=== PATIENT | female | born 1960 | race Two or more races ===

== ENCOUNTER → 2022-12-08 | Emergency (ER) | payer OTHER ==
[~2022-12-08] VITALS: Ht 165.1 cm; Wt 81.6 kg
== END | disposition home or self-care (01) ==
LOC: ER 13:52
DX: E86.0 Dehydration (principal); R19.7 Diarrhea, unspecified

== ENCOUNTER 2023-01-11 08:18 | Outpatient (CLI) | payer OTHER | END 2023-01-11 08:24 | disposition home or self-care (01) | LOC: MAMO-SONO 08:18 | PROVIDERS: ATTEND Obstetrics & Gynecology Gynecology | DX: N95.0 Postmenopausal bleeding (principal); N60.11 Diffuse cystic mastopathy of right breast; N60.12 Diffuse cystic mastopathy of left breast; Z12.31 Encounter for screening mammogram for malignant neoplasm of breast ==

== ENCOUNTER 2023-03-10 10:15 | Outpatient (CLI) | payer OTHER | END 2023-03-10 10:17 | disposition home or self-care (01) | LOC: LAB 10:15 | PROVIDERS: ATTEND Pediatrics | DX: R19.7 Diarrhea, unspecified (principal); R69 Illness, unspecified; R53.1 Weakness; R10.817 Generalized abdominal tenderness; R10.84 Generalized abdominal pain; Z12.11 Encounter for screening for malignant neoplasm of colon; R42 Dizziness and giddiness; R73.01 Impaired fasting glucose; D25.1 Intramural leiomyoma of uterus; R97.1 Elevated cancer antigen 125 [CA 125]; D27.1 Benign neoplasm of left ovary; R05.9 Cough, unspecified; R51.0 Headache with orthostatic component, not elsewhere classified; N95.1 Menopausal and female climacteric states ==

== ENCOUNTER 2023-03-10 11:39 | Outpatient (CLI) | payer OTHER | END 2023-03-10 12:02 | disposition home or self-care (01) | LOC: RAD 11:39 | PROVIDERS: ATTEND Pediatrics | DX: D25.1 Intramural leiomyoma of uterus (principal); D27.1 Benign neoplasm of left ovary; N95.0 Postmenopausal bleeding; R10.817 Generalized abdominal tenderness; R10.84 Generalized abdominal pain ==

== ENCOUNTER 2023-03-18 22:14 | Emergency (ER) | payer OTHER ==
[~2023-03-18] VITALS: Ht 162.6 cm; Wt 59.4 kg
[2023-03-19] MEDS ORDERED: CEPHALEXIN250 MG/5 M PO (06:20)
[2023-03-19] MEDS ORDERED: ONDANSETRON ODT4 MG PO (06:20)
[2023-03-19] MEDS ORDERED: PEPCID40 MG PO (06:20)
== END 2023-03-19 06:19 ==
LOC: ER 22:14
DX: R11.0 Nausea (principal)

== ENCOUNTER 2023-09-30 10:51 | Outpatient (CLI) | payer OTHER ==
[~2023-09-30 10:51] MED LIST: CEPHALEXIN250 MG/5 M PO; ONDANSETRON ODT4 MG PO; PEPCID40 MG PO
== END 2023-09-30 11:02 | disposition home or self-care (01) ==
LOC: TOM 10:51
PROVIDERS: ATTEND General Practice
DX: C78.01 Secondary malignant neoplasm of right lung (principal); C54.1 Malignant neoplasm of endometrium

== ENCOUNTER 2023-10-26 11:36 | Inpatient (IN) | payer OTHER ==
[~2023-10-26] VITALS: Ht 165.1 cm; Wt 59.0 kg
[2023-10-26 12:26] LABS: HEMOGLOBIN 12.2 g/dL (12.0-15.00); MEAN CELL VOLUME 89.5 fL (80.00-100.00); MEAN CORPUSCULAR HEMOGLOBIN 29.6 pg (27.00-32.0); PLATELET COUNT 209 K/uL (150-450); RED BLOOD COUNT 4.13 M/uL (4.00-6.00); RED CELL DISTRIBUTION WIDTH 12.8 % (11.5-14.5)
[2023-10-26 12:52] LABS: ALBUMIN 3.2 gm/dL (3.4-5.0); BILIRUBIN TOTAL 0.6 mg/dL (0.3-1.2); CALCIUM 9.2 mg/dL (8.5-10.1); CREATININE SERUM 0.48 mg/dL (0.55-1.02); GFR 131.48; GLOBULINA 3.8 G/DL (2.4-3.5); POTASSIUM 3.98 mEq/L (3.5-5.1)
[2023-10-26 12:56] LABS: URINE APPEARANCE Clear; URINE BILIRRUBIN Small (NEGATIVE); URINE BLOOD Small; URINE COLOR Dark Yellow; URINE GLUCOSE Negative (NEGATIVE); URINE LEUKOCYTE Trace; URINE NITRATE Negative; URINE PROTEIN Trace (NEGATIVE)
[2023-10-26 12:57] LABS: INR 1.03; PARTIAL THROMBOPLASTIN TIME 32.2 SECONDS (22.0-34.0); PROTHROMBIN TIME 10.8 SECONDS (9.0-11.5)
[2023-10-26 12:59] LABS: URINE BACTERIA 258.2 uL (0.0-1933); URINE EPITHELIAL CELLS 28.2 uL (0.0-38.8); URINE RBC 32.3 uL (0.0-20.8); URINE WBC 14.9 uL (0.0-23.2)
[2023-10-26] MEDS ORDERED: ONDANSETRON HCL 2 MG/ML VIAL IV PRN (13:45)
[2023-10-26] MEDS ORDERED: HYOSCYAMINE SULFATE 0.125 MG TAB.SUBL SL PRN (13:45)
[2023-10-26] MEDS ORDERED: ACETAMINOPHEN 500 MG GEL..CAP PO PRN (13:45)
[2023-10-26] MEDS ORDERED: RINGERS SOLUTION,LACTATED 1,000 ML IV SCH (13:45)
[2023-10-26] MEDS ORDERED: MORPHINE SULFATE 4 MG/ML CARTRIDGE IV PRN (13:45)
[2023-10-26] MEDS ORDERED: FAMOTIDINE/PF 20 MG/2 ML VIAL IV SCH (21:00)
[2023-10-27] MEDS ORDERED: METOPROLOL SUCCINATE 25 MG TAB.SR.24H PO SCH (09:00)
[2023-10-27 21:45] LABS: TP PLEURAL FLUID 4.4 g/dl
[2023-10-27 22:28] LABS: PLEURAL FLUID APPEARANCE TURBID; PLEURAL FLUID COLOR RED-BLOODY
[2023-10-27 22:29] LABS: MONONUCLEAR 88 %; POLYMORPHONUCLEAR 12 %
== END 2023-10-28 19:37 | disposition home or self-care (01) | DRG 755 ==
LOC: MEDJ 11:36
PROVIDERS: Radiology Vascular & Interventional Radiology; ADMIT Internal Medicine Hematology & Oncology; ATTEND Internal Medicine Hematology & Oncology
PROC: BW24ZZZ Computerized Tomography (CT Scan) of Chest and Abdomen (ICD-10-PCS; principal; 2023-10-26)
PROC: BW21ZZZ Computerized Tomography (CT Scan) of Abdomen and Pelvis (ICD-10-PCS; 2023-10-27)
DX: C54.1 Malignant neoplasm of endometrium (principal); J91.0 Malignant pleural effusion

== ENCOUNTER 2023-12-24 16:31 | Emergency (ER) | payer OTHER ==
[~2023-12-24] VITALS: Ht 160 cm; Wt 59.0 kg
[~2023-12-24 16:31] MED LIST changes: +CEFDINIR300 MG PO
[2023-12-24] MEDS ORDERED: TOPROL XL25 M1 PO (18:09)
== END 2023-12-25 00:30 | disposition home or self-care (01) ==
LOC: ER 16:32
DX: C78.01 Secondary malignant neoplasm of right lung (principal); J91.0 Malignant pleural effusion; J94.2 Hemothorax

== ENCOUNTER 2024-02-23 14:58 | Outpatient (CLI) | payer OTHER ==
[~2024-02-23 14:58] MED LIST changes: +TOPROL XL25 M1 PO
== END 2024-02-23 15:03 | disposition home or self-care (01) ==
LOC: TOM 14:58
PROVIDERS: ATTEND Internal Medicine Pulmonary Disease
DX: J91.0 Malignant pleural effusion (principal)

== ENCOUNTER 2024-02-28 17:32 | Inpatient (IN) | payer OTHER ==
[~2024-02-28] VITALS: Ht 152.4 cm; Wt 59.0 kg
[2024-02-28] MEDS ORDERED: IPRATROPIUM BROMIDE 0.5 MG/2.5 ML AMPUL.NEB IH SCH (18:49)
[2024-02-28] MEDS ORDERED: FAMOTIDINE/PF 20 MG in 0.9 % SODIUM CHLORIDE 8 ML IV PUSH SCH (18:51)
[2024-02-28] MEDS ORDERED: ONDANSETRON HCL 4 MG in 0.9 % SODIUM CHLORIDE 50 ML IV PRN (19:00)
[2024-02-28] MEDS ORDERED: ACETAMINOPHEN 500 MG GEL..CAP PO PRN (19:00)
[2024-02-28 19:57] LABS: HEMATOCRIT 30.5 % (36.0-45.00); HEMOGLOBIN 9.8 g/dL (12.0-15.00); MEAN CELL VOLUME 84.5 fL (80.00-100.00); MEAN CORPUSCULAR HEMOGLOBIN 27.2 pg (27.00-32.0); MEAN CORPUSCULAR HGB CONC 32.2 g/dl (32.0-36.0); PLATELET COUNT 410 K/uL (150-450); RED BLOOD COUNT 3.61 M/uL (4.00-6.00); RED CELL DISTRIBUTION WIDTH 15.6 % (11.5-14.5)
[2024-02-28 20:06] LABS: INR 1.12; PARTIAL THROMBOPLASTIN TIME 33.6 SECONDS (22.0-34.0); PROTHROMBIN TIME 11.7 SECONDS (9.0-11.5)
[2024-02-28 20:15] LABS: ALBUMIN 1.2 gm/dL (3.4-5.0); ALKALINE PHOSPHATASE 129 U/L (50-136); ANION GAP 8 (10.0-20.0); AST/SGOT 14 U/L (15-37); BILIRUBIN TOTAL 0.17 mg/dL (0.3-1.2); BLOOD UREA NITROGEN 12 mg/dL (7-18); BUN CREA RATIO 23 (7.0-25.0); CALCIUM 8.2 mg/dL (8.5-10.1); CARBON DIOXIDE 27 mEq/L (21-32); CHLORIDE 107 mmol/L (98-107); CREATININE SERUM 0.53 mg/dL (0.55-1.02); GFR 117.27; GLOBULINA 5.1 G/DL (2.4-3.5); GLUCOSE FASTING 114 mg/dL (65-100); OSMOLALITY SERUM 276 MOSM/KG (275-295); SODIUM 138 mmol/L (136-145); TOTAL PROTEIN 6.3 gm/dL (6.4-8.2)
[2024-02-28 20:17] LABS: ALT/SGPT < 6 U/L (12-78)
[2024-02-28] MEDS ORDERED: FAMOtidine 200mg/20ml VIAL ONE (20:23)
[2024-02-28 20:24] LABS: ERYTHROCYTE SEDIMENTATION RATE 102 mm/hr
[2024-02-28] MEDS ORDERED: AZITHROMYCIN 500 MG in DEXTROSE 5 % IN WATER 250 ML IV SCH (20:29)
[2024-02-28] MEDS ORDERED: CEFTRIAXONE SODIUM 2,000 MG in 0.9 % SODIUM CHLORIDE 100 ML IV SCH (20:29)
[2024-02-28] MEDS ORDERED: CEFTRIAXONE SODIUM 2,000 MG VIAL ONE (20:53)
[2024-02-28] MEDS ORDERED: AZITHROMYCIN 500 MG VIAL IV ONE (22:04)
[2024-02-29] MEDS ORDERED: FAMOTIDINE/PF 20 MG/2 ML VIAL ONE (08:24)
[2024-02-29] MEDS ORDERED: VITAMIN B COMPLEX 1 EACH PO SCH (09:00)
[2024-02-29] MEDS ORDERED: EPOETIN ALFA-EPBX 10,000 UNIT/ML VIAL (Retacrit) SUBCUTANEO SCH (09:00)
[2024-02-29] MEDS ORDERED: FUROsemide 20 MG/2 ML VIAL IV SCH (09:00)
[2024-02-29] MEDS ORDERED: METOPROLOL SUCCINATE 25 MG TAB.SR.24H PO SCH (09:00)
[2024-03-01 06:32] LABS: PH,URINE 5.5 (5.0-8.0); URINE APPEARANCE Cloudy; URINE BILIRRUBIN Negative (NEGATIVE); URINE BLOOD Negative; URINE COLOR Yellow; URINE GLUCOSE Negative (NEGATIVE); URINE KETONE Negative (NEGATIVE); URINE LEUKOCYTE Negative; URINE NITRATE Negative; URINE PROTEIN 30 (NEGATIVE); URINE UROBILINOGEN 0.2 E.U./dl
[2024-03-01 06:33] LABS: URINE BACTERIA 20.1 uL (0.0-1933); URINE EPITHELIAL CELLS 7.2 uL (0.0-38.8); URINE RBC 2.1 uL (0.0-20.8); URINE WBC 11.7 uL (0.0-23.2)
[2024-03-01 06:41] LABS: URINE CAST 0.61 uL (0.0-1.40)
[2024-03-01] MEDS ORDERED: FAMOTIDINE/PF 20 MG/2 ML VIAL ONE (09:10)
[2024-03-02 09:12] LABS: HEMATOCRIT 30.1 % (36.0-45.00); HEMOGLOBIN 9.5 g/dL (12.0-15.00); MEAN CORPUSCULAR HEMOGLOBIN 26.9 pg (27.00-32.0); MEAN CORPUSCULAR HGB CONC 31.7 g/dl (32.0-36.0); PLATELET COUNT 425 K/uL (150-450); RED BLOOD COUNT 3.54 M/uL (4.00-6.00)
[2024-03-02] MEDS ORDERED: SODIUM CL 0.9% 100 ML IV.SOLN IV ONE (09:20)
[2024-03-03] MEDS ORDERED: METROnidazole 500 MG TABLET PO SCH (17:00)
[2024-03-05] MEDS ORDERED: ONDANSETRON HCL 2 MG/ML VIAL IV PRN (23:00)
[2024-03-06 09:02] LABS: HEMATOCRIT 26.6 % (36.0-45.00); MEAN CELL VOLUME 82.4 fL (80.00-100.00); MEAN CORPUSCULAR HEMOGLOBIN 26.6 pg (27.00-32.0); MEAN CORPUSCULAR HGB CONC 32.2 g/dl (32.0-36.0); PLATELET COUNT 419 K/uL (150-450); RED BLOOD COUNT 3.23 M/uL (4.00-6.00); RED CELL DISTRIBUTION WIDTH 15.8 % (11.5-14.5)
[2024-03-06 09:20] LABS: HEMOGLOBIN 8.6 g/dL (12.0-15.00)
[2024-03-06 09:27] LABS: ALKALINE PHOSPHATASE 113 U/L (50-136); ANION GAP 6 (10.0-20.0); AST/SGOT 16 U/L (15-37); BILIRUBIN TOTAL 0.23 mg/dL (0.3-1.2); BLOOD UREA NITROGEN 6 mg/dL (7-18); BUN CREA RATIO 19 (7.0-25.0); CALCIUM 7.8 mg/dL (8.5-10.1); CARBON DIOXIDE 31 mEq/L (21-32); CHLORIDE 107 mmol/L (98-107); CREATININE SERUM 0.31 mg/dL (0.55-1.02); GFR 217.76; GLUCOSE FASTING 88 mg/dL (65-100); OSMOLALITY SERUM 276 MOSM/KG (275-295); POTASSIUM 3.65 mEq/L (3.5-5.1); SODIUM 140 mmol/L (136-145); TOTAL PROTEIN 4.7 gm/dL (6.4-8.2)
[2024-03-06 09:29] LABS: ALT/SGPT < 6 U/L (12-78); GLOBULINA 3.8 G/DL (2.4-3.5)
[2024-03-06 09:30] LABS: ALBUMIN 0.9 gm/dL (3.4-5.0)
[2024-03-07] MEDS ORDERED: METRONIDAZOLE/SODIUM CHLORIDE 500 MG/100 ML PIGGYBACK IV SCH (01:00)
[2024-03-07 07:46] LABS: HEMOGLOBIN 9.4 g/dL (12.0-15.00); MEAN CELL VOLUME 84.5 fL (80.00-100.00); MEAN CORPUSCULAR HEMOGLOBIN 27.5 pg (27.00-32.0); MEAN CORPUSCULAR HGB CONC 32.5 g/dl (32.0-36.0); PLATELET COUNT 420 K/uL (150-450); RED BLOOD COUNT 3.43 M/uL (4.00-6.00); RED CELL DISTRIBUTION WIDTH 15.9 % (11.5-14.5)
[2024-03-07] MEDS ORDERED: SOD FERRIC GLUC COMPLX/SUCROSE 125 MG in 0.9 % SODIUM CHLORIDE 100 ML IV SCH (09:00)
[2024-03-08] MEDS ORDERED: LIDOCAINE HCL 1% 20ML VIAL IJ ONE (18:46)
[2024-03-08] MEDS ORDERED: LIDOCAINE HCL 1% 10ML VIAL IJ ONE (21:15)
[2024-03-08] MEDS ORDERED: METOPROLOL SUCCINATE 25 MG TAB.SR.24H PO STA (21:57)
[2024-03-08 22:01] LABS: HEMATOCRIT 27.5 % (36.0-45.00); MEAN CELL VOLUME 83.6 fL (80.00-100.00); MEAN CORPUSCULAR HGB CONC 32.4 g/dl (32.0-36.0); PLATELET COUNT 468 K/uL (150-450); RED BLOOD COUNT 3.29 M/uL (4.00-6.00); RED CELL DISTRIBUTION WIDTH 15.7 % (11.5-14.5)
[2024-03-08 22:02] LABS: HEMOGLOBIN 8.9 g/dL (12.0-15.00)
[2024-03-09] MEDS ORDERED: METOPROLOL SUCCINATE 25 MG TAB.SR.24H PO SCH (09:00)
[2024-03-09] MEDS ORDERED: CEFTRIAXONE SODIUM 2,000 MG in 0.9 % SODIUM CHLORIDE 100 ML IV SCH (21:00)
[2024-03-10 06:49] LABS: CALCIUM 7.7 mg/dL (8.5-10.1); CREATININE SERUM 0.34 mg/dL (0.55-1.02); GFR 195.74; POTASSIUM 3.94 mEq/L (3.5-5.1)
[2024-03-11 10:38] LABS: HEMATOCRIT 26.4 % (36.0-45.00); MEAN CELL VOLUME 84.8 fL (80.00-100.00); PLATELET COUNT 451 K/uL (150-450); RED BLOOD COUNT 3.11 M/uL (4.00-6.00); RED CELL DISTRIBUTION WIDTH 16.6 % (11.5-14.5)
[2024-03-11 11:25] LABS: HEMOGLOBIN 8.4 g/dL (12.0-15.00)
[2024-03-12] MEDS ORDERED: METRONIDAZOLE/SODIUM CHLORIDE 500 MG/100 ML PIGGYBACK IV SCH (13:00)
[2024-03-15 08:59] LABS: HEMATOCRIT 26.7 % (36.0-45.00); MEAN CELL VOLUME 84.9 fL (80.00-100.00); MEAN CORPUSCULAR HGB CONC 31.3 g/dl (32.0-36.0); RED BLOOD COUNT 3.15 M/uL (4.00-6.00)
[2024-03-15 09:03] LABS: HEMOGLOBIN 8.4 g/dL (12.0-15.00); MEAN CORPUSCULAR HEMOGLOBIN 26.6 pg (27.00-32.0); PLATELET COUNT 501 K/uL (150-450)
== END 2024-03-16 20:54 | disposition home or self-care (01) | DRG 920 ==
LOC: ER 17:33 → MEDJ 19:43
PROVIDERS: General Practice; Internal Medicine; Internal Medicine Hematology & Oncology; Student in an Organized Health Care Education/Training Program; ADMIT Internal Medicine; ATTEND Internal Medicine
PROC: 0W9B30Z Drainage of Left Pleural Cavity with Drainage Device, Percutaneous Approach (ICD-10-PCS; principal; 2024-03-01)
PROC: 0W9930Z Drainage of Right Pleural Cavity with Drainage Device, Percutaneous Approach (ICD-10-PCS; 2024-03-01)
PROC: BW24ZZZ Computerized Tomography (CT Scan) of Chest and Abdomen (ICD-10-PCS; 2024-03-01)
PROC: 0WP930Z Removal of Drainage Device from Right Pleural Cavity, Percutaneous Approach (ICD-10-PCS; 2024-03-08)
PROC: 0JH63XZ Insertion of Tunneled Vascular Access Device into Chest Subcutaneous Tissue and Fascia, Percutaneous Approach (ICD-10-PCS; 2024-03-08)
PROC: 4A12X4Z Monitoring of Cardiac Electrical Activity, External Approach (ICD-10-PCS; 2024-03-09)
DX: T85.9XXA Unspecified complication of internal prosthetic device, implant and graft, initial encounter (principal); C78.01 Secondary malignant neoplasm of right lung; E44.0 Moderate protein-calorie malnutrition; J91.0 Malignant pleural effusion; C54.1 Malignant neoplasm of endometrium; D63.0 Anemia in neoplastic disease; I10 Essential (primary) hypertension